=== PATIENT | male | born 1990 | race Caucasian/White ===

== ENCOUNTER 2019-07-22 21:05 | Inpatient (IN) | payer MEDICAID, OTHER ==
[~2019-07-22] VITALS: Ht 170.2 cm; Wt 63.0 kg
[~2019-07-22 21:05] MED LIST: CLIN-90 PO; HYDR-4383 PO
[2019-07-22 22:53] LABS: BASOPHILS # (AUTO) 0.1 X10'3 (0-0.2); EOSINOPHILS # (AUTO) 0.2 X10'3 (0-0.9); EOSINOPHILS % (AUTO) 1.2 % (0-6); MONOCYTES # (AUTO) 1.2 X10'3 (0-0.9)
[2019-07-22 22:56] LABS: BASOPHILS % (AUTO) 0.5 % (0-1); HEMATOCRIT 31.5 % (42.0-52.0); LYMPHOCYTES % (AUTO) 11.6 % (21-51); MEAN CORPUSCULAR HEMOGLOBIN 30.1 PG (27.0-31.0); MEAN CORPUSCULAR HGB CONC 34.9 g/dL (33.0-36.5); MEAN CORPUSCULAR VOLUME 86.2 FL (78-98); MEAN PLATELET VOLUME 6.1 FL (7.4-10.4); MONOCYTES % (AUTO) 7.1 % (2-12); NEUTROPHILS # (AUTO) 13.9 X10'3 (1.8-7.7); NEUTROPHILS % (AUTO) 79.6 % (42-75); PLATELET COUNT 686 X10'3 (140-440); RED BLOOD COUNT 3.65 X10'6 (4.70-6.10); RED CELL DISTRIBUTION WIDTH 13.2 % (11.5-14.5); WHITE BLOOD COUNT 17.5 X10'3 (4.5-11.0)
[2019-07-22 23:06] LABS: PARTIAL THROMBOPLASTIN TIME 26 SECONDS (22-32)
[2019-07-22 23:30] LABS: ALANINE AMINOTRANSFERASE 24 U/L (12-78); ALBUMIN 2.4 G/DL (3.4-5.0); ALBUMIN/GLOBULIN RATIO 0.4 (1.1-1.5); ALKALINE PHOSPHATASE 73 IU/L (46-116); ANION GAP 7 (8-16); ASPARTATE AMINO TRANSFERASE 20 U/L (10-37); BILIRUBIN,TOTAL 0.3 MG/DL (0.1-1.0); BLOOD UREA NITROGEN 20 MG/DL (7-18); BUN/CREATININE RATIO 20.6 (5.4-32.0); CALCIUM 8.5 MG/DL (8.5-10.1); CHLORIDE 98 MMOL/L (99-107); CREATININE 0.97 MG/DL (0.60-1.10); GLUCOSE 118 MG/DL (70-104); MAGNESIUM 1.9 MG/DL (1.5-2.4); POTASSIUM 3.7 MMOL/L (3.5-5.1); SODIUM 134 MMOL/L (135-145); TOTAL CARBON DIOXIDE 29.4 MMOL/L (24-32); TOTAL PROTEIN 7.8 G/DL (6.4-8.2); eGFR > 90 ML/MIN
[2019-07-22 23:33] VITALS: BP 126/75
[2019-07-22 23:39] LABS: CLARITY,URINE SLIGHTLY CLOUDY (Clear); COLOR,URINE YELLOW (Yellow); GLUCOSE, URINE NEGATIVE (Neg); KETONES,URINE NEGATIVE (Neg); LEUKOCYTE ESTERASE ,URINE NEGATIVE (Neg); NITRITES, URINE NEGATIVE (Neg); OCCULT BLOOD,URINE LARGE (Neg); PROTEIN,URINE NEGATIVE (Neg)
[2019-07-22 23:45] LABS: UA COLLECTION TYPE CLN CATCH MIDSTREAM
[2019-07-22 23:46] LABS: BACTERIA,URINE NONE SEEN /HPF (Neg); WBC,URINE 0-4 /HPF (0-4)
[2019-07-22 23:47] LABS: CAL OXALATE CRYSTALS 3+ /HPF (NEGATIVE); MUCUS STRANDS FEW /LPF (Neg); SQUAMOUS EPITHELIAL CELL,UR FEW /LPF (FEW)
[2019-07-23] MEDS ORDERED: VANCOMYCIN 1gm/H2O 200ml PB 200 ML IV ONE (00:25)
[2019-07-23] MEDS ORDERED: NO HOME MEDS (00:33)
[2019-07-23] MEDS ORDERED: magnesium hydroxide 30ml (MOM) UD suspension PO PRN (01:05)
[2019-07-23] MEDS ORDERED: magnesium 2GM in 50ml NS 50 ML IV PRN (01:05)
[2019-07-23] MEDS ORDERED: ondansetron/PF 4mg/2ml inj IV PRN (01:05)
[2019-07-23] MEDS ORDERED: HYDROcodone/acetaminophen 5mg/325mg tablet PO PRN (01:05)
[2019-07-23] MEDS ORDERED: mag hydrox/Alum hydrox/simeth 30ml oral suspension PO PRN (01:05)
[2019-07-23] MEDS ORDERED: potassium Cl 20 mEq SR tablet PO PRN ×2 (01:05)
[2019-07-23] MEDS ORDERED: acetaminophen 325mg tablet PO PRN (01:05)
[2019-07-23] MEDS ORDERED: normal saline 1000ml 1,000 ML IV ONE (01:05)
[2019-07-23] MEDS ORDERED: morphine 2 MG/ML inj. syringe IV PRN ×2 (01:05)
[2019-07-23] MEDS ORDERED: potassium CL 10mEq/100ml bag 100 ML IV PRN ×2 (01:05)
[2019-07-23] MEDS ORDERED: magnesium Cl slow-release 64mg tablet PO PRN (01:05)
[2019-07-23] MEDS ORDERED: magnesium 4gm in 100ml NS 100 ML IV PRN (01:05)
--- NOTE | 2019-07-23 03:20 | NUR ---
PATIENT ARRIVED FROM ER. HE DECLINED CARE DUE TO THE FACT THAT HE COULD NOT SMOKE AND THE CHARGE NURSE WAS NOTIFIED. PATIENT WAS EDUCATED BEFORE NOTIFYING THE PHYSICIAN (DR WARREN). PATIENT WAS OFFERED NICOTINE PATCH AND NICOTINE GUM OF WHICH HE DECLINED AND DEMANDED TO LEAVE. HE SIGNED THE PAPER AND THE IV ACCESS WAS REMOVED.
[2019-07-23] MEDS ORDERED: VANCOMYCIN 1gm/H2O 200ml PB 200 ML IV SCH (08:00)
[2019-07-23] MEDS ORDERED: K and/or MAG REPLACEMENT MC SCH (08:00)
[2019-07-23] MEDS ORDERED: enoxaparin 40mg/0.4ml syringe SQ SCH (08:00)
[2019-07-23] MEDS ORDERED: IBUP-1984 PO (16:01)
[2019-07-29] MEDS ORDERED: SULF1TAB49 PO (11:15)
[2019-07-29] MEDS ORDERED: HYDR-4383 PO (11:15)
== END 2019-07-23 03:20 | disposition left against medical advice (07) | DRG 383 ==
LOC: ER 21:06 → ED HOLD 07-23 01:03 → SUR 3N 07-23 03:00
PROVIDERS: ADMIT Hospitalist; ATTEND Hospitalist
DX: L02.212 Cutaneous abscess of back [any part, except buttock and flank] (principal); F11.90 Opioid use, unspecified, uncomplicated; Z53.29 Procedure and treatment not carried out because of patient's decision for other reasons; M54.9 Dorsalgia, unspecified; Z59.0 Homelessness
CPT/HCPCS: 36415; 71045; 71250; 74176; 80053; 81001; 83605; 83735; 83880; 84145; 85025; 85610; 85730; 87040; 87070; 87077; 87186; 96374; 99285; G0378; J3370

== ENCOUNTER 2022-08-12 22:10 | Emergency (ER) | payer MEDICAID ==
[~2022-08-12] VITALS: Ht 170.2 cm; Wt 52.3 kg
[~2022-08-12 22:10] MED LIST changes: -CLIN-90 PO; -HYDR-4383 PO; +IBUP-1984 PO
[2022-08-12 22:46] VITALS: BP 151/82
--- NOTE | 2022-08-13 09:35 | NUR ---
Received order for consult. Patient was discharged. Called patient to follow up with him. Talked to his mom. She will give him the message to call me back.
== END 2022-08-13 00:05 | disposition home or self-care (01) ==
LOC: ER 22:10
DX: F11.10 Opioid abuse, uncomplicated (principal); F32.9 Major depressive disorder, single episode, unspecified; F17.200 Nicotine dependence, unspecified, uncomplicated; Z59.00 Homelessness unspecified; Z79.899 Other long term (current) drug therapy
CPT/HCPCS: 99283